=== PATIENT | female | born 1975 | race Caucasian/White ===

== ENCOUNTER 2017-12-30 08:23 | Inpatient (IN) | payer SELFPAY ==
[~2017-12-30] VITALS: Ht 154.9 cm; Wt 58.7 kg
[2017-12-30] MEDS ORDERED: ONDANSETRON HCL 4MG/2ML VIAL IV STA (08:31)
[2017-12-30] MEDS ORDERED: MORPHINE SULFATE 4 MG/ML CPJ (NOT FOR IM USE) IV STA (08:31)
[2017-12-30] MEDS ORDERED: PIPERACILLIN/TAZ 3.375G PREMIX 50 ML IV ONE (08:45)
[2017-12-30] MEDS ORDERED: SODIUM CHLORIDE 0.9% 1000ML BAG (SEPSIS BOLUS) IV ONE (08:45)
[2017-12-30] MEDS ORDERED: VANCOMYCIN 1 G PREMIX 200 ML IV ONE (08:45)
[2017-12-30] MEDS ORDERED: LORAZEPAM 1MG TABLET PO ONE (08:45)
[2017-12-30 09:04] LABS: HEMATOCRIT. 39.5 % (36.0-48.0); HEMOGLOBIN. 13.2 g/dL (12.0-16.0); MEAN CORPUSCULAR HEMOGLOBIN 29.6 pg (28.0-32.0); MEAN CORPUSCULAR VOLUME 88.8 fL (81.0-99.0); MEAN PLATELET VOLUME 7.1 fl (7.4-10.4); PLATELET 486 x1000/uL (130-400); RED BLOOD CELL COUNT 4.45 mill/uL (4.2-5.4); RED CELL DISTRIBUTION WIDTH 15.8 % (11.6-14.6)
[2017-12-30 09:07] LABS: CLARITY URINE CLEAR (CLEAR); COLOR URINE YELLOW (YELLOW); KETONES URINE NEGATIVE (NEGATIVE); LEUKOCYTE ESTERASE URINE 1+ (NEGATIVE); NITRITE URINE POSITIVE (NEGATIVE); OCCULT BLOOD URINE 2+ (NEGATIVE); PH URINE 7.5 (4.5-8.0); PROTEIN URINE NEGATIVE (NEGATIVE); SPECIFIC GRAVITY URINE 1.006 (1.005-1.030); UROBILINOGEN URINE 0.2 E.U./dL (0.2-1.0)
[2017-12-30 09:13] LABS: PARTIAL THROMBOPLASTIN TIME 26.1 sec (23.4-31.0); PROTHROMBIN TIME 10.7 sec (9.4-11.6)
[2017-12-30 09:33] LABS: HCG SCREEN NEGATIVE
[2017-12-30 09:36] LABS: *BARBITURATES SCREEN URINE NEGATIVE (NEGATIVE); *BENZODIAZEPINES SCREEN URINE NEGATIVE (NEGATIVE); *COCAINE SCREEN URINE NEGATIVE (NEGATIVE); CANNABINOID URINE SCREEN NEGATIVE (NEGATIVE); METHADONE URINE SCREEN NEGATIVE (NEGATIVE); OPIATES URINE SCREEN NEGATIVE (NEGATIVE); PHENCYCLIDINE URINE SCREEN NEGATIVE (NEGATIVE)
[2017-12-30 09:41] LABS: PLATELET ESTIMATE NORMAL
[2017-12-30 09:41] LABS: *AMPHETAMINES SCREEN URINE PRESUMTIVE POSITIVE (NEGATIVE)
[2017-12-30 12:05] LABS: CHLORIDE 114 mEq/L (98-107)
[2017-12-30 14:49] VITALS: BP 142/83
[2017-12-30] MEDS ORDERED: CLINDAMYCIN 600 MG in DEXTROSE 5% WATER 50 ML IV SCH (15:00)
[2017-12-30 16:00] VITALS: BP 139/74
[2017-12-30] MEDS ORDERED: CEFTRIAXONE 2 G PREMIX 50 ML IV SCH (16:00)
[2017-12-30] MEDS ORDERED: TETANUS, DIPHTHERIA, PERTUSSIS VAC/PF 0.5ML (>7YR OLD) IM ONE (16:00)
[2017-12-30] MEDS ORDERED: LORAZEPAM 2MG/ML CPJ IV PRN (16:15)
[2017-12-30] MEDS ORDERED: ONDANSETRON HCL 4MG/2ML VIAL IV PRN (16:15)
[2017-12-30] MEDS: CEFTRIAXONE 2 G in DEXTROSE 5% WATER 50 ML IV SCH (16:34)
[2017-12-30] MEDS: HYDROCODONE/ACETAMINOPHEN 5/325MG TABLET PO PRN ×2 (16:35→20:43)
[2017-12-30] MEDS: CLINDAMYCIN 600MG PREMIX 50 ML IV SCH ×2 (16:39→23:26)
[2017-12-30] MEDS: VANCOMYCIN 750 MG PREMIX 150 ML IV SCH (18:00)
[2017-12-30 20:00] VITALS: BP 118/61
[2017-12-30] MEDS: DEXT 5%/0.45% NACL KCL 10MEQ/L 1,000 ML IV SCH (21:42)
[2017-12-30] MEDS: LEVETIRACETAM 500MG TABLET PO SCH (21:42)
[2017-12-31] VITALS: BP 113/58
[2017-12-31] MEDS: VANCOMYCIN 750 MG PREMIX 150 ML IV SCH ×2 (00:46→06:31)
[2017-12-31] MEDS: ACETAMINOPHEN 650MG/20.3ML UDC PO PRN ×2 (01:00→07:00)
[2017-12-31 04:00] VITALS: BP 111/54
[2017-12-31] MEDS: CLINDAMYCIN 600MG PREMIX 50 ML IV SCH ×2 (05:28→14:57)
[2017-12-31 06:22] LABS: BASOPHILS % 0.7 % (0.0-2.0); HEMATOCRIT. 31.3 % (36.0-48.0); HEMOGLOBIN. 10.5 g/dL (12.0-16.0); LYMPHOCYTES % 12.3 % (20.0-50.0); MEAN CORPUSCULAR HEMOGLOBIN 29.8 pg (28.0-32.0); MEAN CORPUSCULAR VOLUME 89.4 fL (81.0-99.0); MEAN PLATELET VOLUME 7.5 fl (7.4-10.4); MONOCYTES % 12.3 % (2.0-8.0); NEUTROPHILS % 73.7 % (40.0-76.0); PLATELET 395 x1000/uL (130-400); RED BLOOD CELL COUNT 3.51 mill/uL (4.2-5.4); RED CELL DISTRIBUTION WIDTH 15.8 % (11.6-14.6)
[2017-12-31] MEDS: DEXT 5%/0.45% NACL KCL 10MEQ/L 1,000 ML IV SCH ×2 (06:32→14:57)
[2017-12-31 06:44] LABS: CHLORIDE 107 mEq/L (98-107)
[2017-12-31] MEDS ORDERED: OMEPRAZOLE 20MG CAPSULE EXTENDED RELEASE PO SCH (06:45)
[2017-12-31 06:58] LABS: CREATINE KINASE 72 IU/L (26-192); PHOSPHORUS 2.3 mg/dL (2.5-4.9)
[2017-12-31 08:00] VITALS: BP 101/49
[2017-12-31] MEDS: LEVETIRACETAM 500MG TABLET PO SCH (09:35)
[2017-12-31] MEDS: HYDROCODONE/ACETAMINOPHEN 5/325MG TABLET PO PRN (09:45)
[2017-12-31] MEDS ORDERED: POTASSIUM-SODIUM PHOSPHATE POWDER PACKET PO SCH (11:00)
[2017-12-31 11:19] LABS: HEPATITIS B SURFACE ANTIGEN NEGATIVE
[2017-12-31 11:45] LABS: HEPATITIS B CORE AB IGM NEGATIVE
[2017-12-31 11:46] LABS: HEPATITIS A AB IGM NEGATIVE (NEGATIVE)
[2017-12-31 12:00] VITALS: BP 107/44
[2017-12-31] MEDS ORDERED: VANCOMYCIN 1250MG in DEXTROSE 5% WATER 250ML IV SCH (14:00)
[2017-12-31 16:00] VITALS: BP 97/51
[2017-12-31] MEDS: CEFTRIAXONE 2 G in DEXTROSE 5% WATER 50 ML IV SCH (16:45)
== END 2017-12-31 18:02 | disposition left against medical advice (07) | DRG 720 ==
LOC: ER 08:23 → EDBEDREQ 08:34 → EDBEDREQSVC 08:54 → EDBEDREQTM 08:54 → EDBD 10:40 → 5WST 10:40 → EDBEDREQTM 10:44 → EDBEDREQ 10:44 → ENRESERV 12:59
PROVIDERS: ADMIT Family Medicine Adult Medicine; ATTEND Family Medicine Adult Medicine
DX: A41.9 Sepsis, unspecified organism (principal); E46 Unspecified protein-calorie malnutrition; N39.0 Urinary tract infection, site not specified; F11.10 Opioid abuse, uncomplicated; E86.0 Dehydration; D64.9 Anemia, unspecified; F15.10 Other stimulant abuse, uncomplicated; F19.10 Other psychoactive substance abuse, uncomplicated; F17.200 Nicotine dependence, unspecified, uncomplicated; F31.9 Bipolar disorder, unspecified; Z53.21 Procedure and treatment not carried out due to patient leaving prior to being seen by health care provider; G40.909 Epilepsy, unspecified, not intractable, without status epilepticus; L02.413 Cutaneous abscess of right upper limb; L02.414 Cutaneous abscess of left upper limb; Z79.899 Other long term (current) drug therapy; Z59.0 Homelessness; Z68.24 Body mass index [BMI] 24.0-24.9, adult
CPT/HCPCS: 36415; 71045; 73080; 73110; 76881; 80048; 80076; 80202; 80305; 81003; 82550; 83605; 83735; 84100; 84703; 85025; 85610; 85730; 86705; 86709; 86803; 87040; 87070; 87086; 87186; 87205; 87340; 90715; 93005; 96365; 96367; 96375; 99291; G0482; J0696; J2270; J2405; J2543; J3370; J3490; J7030; J7040; J7060